=== PATIENT | male | born 1965 | race Caucasian/White ===

== ENCOUNTER 2023-08-31 13:01 | Emergency (ER) | payer OTHER ==
[2023-08-31 13:23] VITALS: TEMP 99.2; BMI 23.8
[2023-08-31] MEDS ORDERED: ACETAMINOPHEN 1000 MG/100 ML BAG IVPB ONE (15:39)
[2023-08-31] MEDS ORDERED: ACETAMINOPHEN INJECTION 100 ML IVPB ONE (16:11)
[2023-08-31 16:34] LABS: BASO % 0.9 % (0-2.0); HEMOGLOBIN 16.9 GM/dL (11.7-16.9); LYMPH % 17.7 % (8-40); MCH 29.9 pg (25.7-33.7); MCHC 35.1 g/dl (32.0-35.9); MEAN PLT VOLUME 8.7 fl (7.5-11.1); MONO % 6.1 % (3.8-10.2); NEUT % 74.3 % (42.8-82.8); PLATELET COUNT 185 10^3/uL (134-434); RBC 5.65 M/mm3 (4.00-5.60); RDW 14.1 % (11.9-15.9); WHITE BLOOD COUNT 10.4 K/mm3 (4.0-10.0)
[2023-08-31 16:47] LABS: POTASSIUM 4.3 mmol/L (3.5-5.1)
[2023-08-31 16:48] LABS: CALCIUM 8.9 mg/dL (8.5-10.1)
[2023-08-31 16:49] LABS: ALBUMIN 3.8 g/dl (3.4-5.0); MAGNESIUM 2.2 mg/dL (1.8-2.4)
[2023-08-31 16:52] LABS: CREATININE 1.3 mg/dL (0.55-1.3)
[2023-08-31 16:54] LABS: BILIRUBIN,TOTAL 0.7 mg/dL (0.2-1)
[2023-08-31 16:56] LABS: BLOOD UREA NITROGEN 22.8 mg/dL (7-18); TOT PROT 7.3 g/dl (6.4-8.2)
[2023-08-31 21:00] VITALS: BP 168/93; PULSE 75; RESP 20
== END 2023-08-31 21:00 | disposition home or self-care (01) ==
LOC: JER 13:01
PROC: 3E033NZ Introduction of Analgesics, Hypnotics, Sedatives into Peripheral Vein, Percutaneous Approach (ICD-10-PCS; principal; 2023-08-31)
DX: S06.0X0A Concussion without loss of consciousness, initial encounter (principal); S00.83XA Contusion of other part of head, initial encounter; S00.31XA Abrasion of nose, initial encounter; R09.89 Other specified symptoms and signs involving the circulatory and respiratory systems; W19.XXXA Unspecified fall, initial encounter
CPT/HCPCS: 36415; 70450-TC; 70486-TC; 71045-TC-FY; 72125-TC; 73562-TC-LT-FY; 80053; 83735; 84484; 85025; 93005; 93010; 99285-25